=== PATIENT | male | born 1975 | race Caucasian/White ===

== ENCOUNTER 2016-12-30 13:32 | Emergency (ER) | payer OTHER | END 2016-12-30 14:12 | disposition left against medical advice (07) | LOC: ER 13:32 | DX: Z53.21 Procedure and treatment not carried out due to patient leaving prior to being seen by health care provider (principal) ==

== ENCOUNTER 2017-03-01 11:13 | Emergency (ER) | payer OTHER ==
--- NOTE | 2017-03-01 11:45 | ER Document Report ---
ED Allergic Reaction - General Chief Complaint: Allergic Reaction Stated Complaint: POSSIBLE INSECT STINGS Time Seen by Provider: 03/01/17 11:39 Mode of Arrival: Medic Information source: Patient Notes: 41-year-old male who states he is allergic to bee stings was stung twice by yellow jackets at 1010 this morning. He did not have his EpiPen. EMS arrived and gave him 50 mg of Benadryl and Pepcid 20 mg IV his vital signs are stable without wheezing or tachycardia. TRAVEL OUTSIDE OF THE [place] IN LAST 30 DAYS: No - Related Data Allergies/Adverse Reactions: Bee Stings Allergy (Intermediate, Uncoded 10/31/12 12:41) Past Medical History - General Information source: Patient - Social History Smoking Status: Never Smoker Chew tobacco use (# tins/day): No Frequency of alcohol use: None Drug Abuse: None Lives with: Spouse/Significant other Family History: Reviewed & Not Pertinent Patient has suicidal ideation: No Patient has homicidal ideation: No - Past Medical History Cardiac Medical History: Reports: Hx Hypertension Renal/ Medical History: Denies: Hx Peritoneal Dialysis Past Surgical History: Reports: Hx Abdominal Surgery - exploratory for poss. hernia, Hx Orthopedic Surgery - right shoulder, Hx Tonsillectomy - Immunizations Hx Diphtheria, Pertussis, Tetanus Vaccination: Yes Review of Systems - Review of Systems Constitutional: No symptoms reported EENT: No symptoms reported Cardiovascular: No symptoms reported Respiratory: No symptoms reported Gastrointestinal: No symptoms reported Genitourinary: No symptoms reported Male Genitourinary: No symptoms reported Musculoskeletal: No symptoms reported Skin: See HPI Hematologic/Lymphatic: No symptoms reported Neurological/Psychological: No symptoms reported Physical Exam - Vital signs Vitals: Temp Pulse Resp BP Pulse Ox 97.6 F 79 16 137/91 H 97 03/01/17 11:27 03/01/17 11:27 03/01/17 11:27 03/01/17 11:27 03/01/17 11:27 Interpretation: Normal - General General appearance: Appears well, Alert In distress: None - HEENT Head: Normocephalic, Atraumatic Eyes: Normal Conjunctiva: Normal Pupils: PERRL Mouth/Lips: Normal. No: Angioedema Mucous membranes: Normal Pharynx: Normal Neck: Supple. No: Lymphadenopathy - Respiratory Respiratory status: No respiratory distress Chest status: Nontender Breath sounds: Normal Chest palpation: Normal - Cardiovascular Rhythm: Regular Heart sounds: Normal auscultation Murmur: No - Abdominal Inspection: Normal Distension: No distension Bowel sounds: Normal Tenderness: Nontender Organomegaly: No organomegaly - Back Back: Normal, Nontender - Extremities General upper extremity: Normal inspection, Nontender, Normal color, Normal ROM , Normal temperature General lower extremity: Normal inspection, Nontender, Normal color, Normal ROM , Normal temperature, Normal weight bearing. No: Jocelyn's sign - Neurological Neuro grossly intact: Yes Cognition: Normal Orientation: AAOx4 [place] Coma Scale Eye Opening: Spontaneous [place] Coma Scale Verbal: Oriented [place] Coma Scale Motor: Obeys Commands [place] Coma Scale Total: 15 Speech: Normal Motor strength normal: LUE, RUE, LLE, RLE Sensory: Normal - Psychological Associated symptoms: Normal affect, Normal mood - Skin Skin Temperature: Warm Skin Moisture: Dry Skin Color: Normal Irregularity with: Tenderness - 2 local red stings without the stinger. left cheek and left lateral thoracic back, Induration - mild, Inflammation - mild Course - Re-evaluation Re-evalutation: 03/01/17 11:44 pt does not want prescription for epi pen because it is too expensive now. but I will give him one just in case 03/01/17 11:47 - Vital Signs Vital signs: Temp Pulse Resp BP Pulse Ox 97.6 F 79 16 137/91 H 97 03/01/17 11:27 03/01/17 11:27 03/01/17 11:27 03/01/17 11:27 03/01/17 11:27 Discharge - Discharge Clinical Impression: 2 yellow jacket stings Condition: Good Disposition: HOME, SELF-CARE Instructions: Use of Diphenhydramine, Acid-Suppressing Medication ([facility]), Swollen Insect Bite or Sting ([facility]) Additional Instructions: over the counter benadryl 25-50mg every 4-6 hours today for the itching to the stings pepcid over the counter 20mg twice a day for a few days keep benadryl and pepcid on hand with you at all times to er any concerns Please complete the patient satisfaction survey if you get one, and return it.. If you do not receive a survey, then you can go to the [facility] website, [email or web address] and place your comments about your very good care. Thank you very much. It was a pleasure being your medical provider today. Prescriptions: Epinephrine [Epipen 2-Dov] 0.3 mg IM ONCE PRN #1 kit PRN Reason: Forms: Return to Work
[2017-03-01 12:10] VITALS: BP 119/83
== END 2017-03-01 12:05 | disposition home or self-care (01) ==
LOC: ER 11:13
DX: T63.461A Toxic effect of venom of wasps, accidental (unintentional), initial encounter (principal); I10 Essential (primary) hypertension; Z91.030 Bee allergy status
CPT/HCPCS: 99283

== ENCOUNTER 2017-06-12 09:39 | Emergency (ER) | payer OTHER ==
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
[2017-06-12 11:32] VITALS: BP 129/89
== END 2017-06-12 11:27 | disposition home or self-care (01) ==
LOC: ER 09:39
DX: S60.221A Contusion of right hand, initial encounter (principal); S70.01XA Contusion of right hip, initial encounter; S83.411A Sprain of medial collateral ligament of right knee, initial encounter; M79.641 Pain in right hand; M25.551 Pain in right hip; M25.561 Pain in right knee; M79.1 Myalgia; V87.7XXA Person injured in collision between other specified motor vehicles (traffic), initial encounter; F17.200 Nicotine dependence, unspecified, uncomplicated
CPT/HCPCS: 99283

== ENCOUNTER → 2018-09-30 | Outpatient (CLI) | payer OTHER ==
--- NOTE | 2018-09-30 11:08 | RADIOLOGY REPORT (SQ) ---
EXAM DESCRIPTION: U/S ABDOMEN COMPLETE W/O DOP COMPLETED DATE/TIME: 09/30/2018 10:47 am REASON FOR STUDY: UPPER ABDOMINAL PAIN R10.10 UPPER ABDOMINAL PAIN, UNSPECIFIED COMPARISON: Abdominal ultrasound 10/31/2012 CT abdomen pelvis 05/25/2011 TECHNIQUE: Dynamic and static grayscale images acquired of the abdomen and recorded on PACS. Additio nal selected color Doppler and spectral images recorded. Note: Study does not meet criteria for complete doppler/duplex scan LIMITATIONS: Midline bowel gas FINDINGS: PANCREAS: Midline pancreas unremarkable LIVER: No masses. Echotexture normal. LIVER VASCULATURE: Normal directional flow of the main portal vein and hepatic veins. GALLBLADDER: No stones. Normal wall thickness. No pericholecystic fluid. ULTRASOUND-DETECTED BRADLEY'S SIGN: Negative. INTRAHEPATIC DUCTS AND COMMON DUCT: CBD and intrahepatic ducts normal caliber. No filling defects. INFERIOR VENA CAVA: Normal flow. AORTA: No aneurysm. RIGHT KIDNEY: Normal size. Normal echogenicity. No solid or suspicious masses. No hydronephros is. No calcifications. LEFT KIDNEY: Normal size. Normal echogenicity. No solid or suspicious masses. No hydronephrosi s. No calcifications. SPLEEN: Normal size. No solid masses. PERITONEAL AND PLEURAL SPACES: No ascites or effusions. OTHER: No other significant finding. IMPRESSION: NORMAL ABDOMINAL ULTRASOUND. TECHNICAL DOCUMENTATION: JOB ID: [id number] [employer]- All Rights Reserved Reading location - IP/workstation name: [email or web address]
== END ==
LOC: RAD 10:01
PROVIDERS: ATTEND Physician Assistant
DX: R10.10 Upper abdominal pain, unspecified (principal)
CPT/HCPCS: 76700